=== PATIENT | female | born 1965 | race Caucasian/White ===

== ENCOUNTER 2023-05-13 15:18 | Emergency (ER) | payer MEDICARE, OTHER ==
[~2023-05-13] VITALS: Ht 167.6 cm; Wt 68.9 kg
[~2023-05-13 15:18] MED LIST: ALBU8.5H8 IH; ASPI81TA31 PO; ATOR40TA PO; BENZ-13 PO; NITR100C6 PO
[2023-05-13] MEDS ORDERED: HYDR-3980 PO (15:48)
[2023-05-13] MEDS ORDERED: LORA0.5T48 PO (15:48)
[2023-05-13 16:07] VITALS: BP 122/70; TEMP 98; O2SAT 99
== END 2023-05-13 16:08 | disposition home or self-care (01) ==
LOC: ER 15:18
DX: M54.2 Cervicalgia (principal); R55 Syncope and collapse; Z86.73 Personal history of transient ischemic attack (TIA), and cerebral infarction without residual deficits; Z88.0 Allergy status to penicillin; Z88.1 Allergy status to other antibiotic agents; Z79.82 Long term (current) use of aspirin; Z79.899 Other long term (current) drug therapy
CPT/HCPCS: A4663